=== PATIENT | female | born 1935 | race Caucasian/White ===

== ENCOUNTER 2020-10-26 20:43 | Inpatient (IN) | payer OTHER ==
[~2020-10-26] VITALS: Ht 162.6 cm; Wt 69.5 kg
[2020-10-26] MEDS ORDERED: METOPROLOL SUCC50 MG (22:21)
[2020-10-26 22:29] VITALS: BP 143/68
[2020-10-26 23:28] LABS: ABSOLUTE NEUTROPHILS 6.1 thou/uL (1.4-8.2); BASOPHILS 0.2 % (0.0-2.0); HEMATOCRIT 44.7 % (37.0-47.0); HEMOGLOBIN 13.9 gm/dL (12.0-15.0); LYMPHOCYTES 13.1 % (24.0-44.0); MCH 30.6 pg (26.0-34.0); MCHC 31.1 g/dL (28.0-37.0); MCV 98.4 fL (80.0-100.0); MONOCYTES 7.3 % (1.0-8.0); PLATELET COUNT 361 thou/uL (150-400); POLYS 79.4 % (36.0-66.0); RBC 4.54 mil/uL (4.20-5.00); RDW 16.2 % (10.5-14.5); WBC 7.7 thou/uL (4.0-11.0)
[2020-10-27 00:08] LABS: CALCIUM 8.6 mg/dL (8.5-10.1); CREATININE 1.6 mg/dL (0.6-1.0); MAGNESIUM 1.7 mg/dL (1.8-2.4); POTASSIUM 4.3 mmol/L (3.5-5.1)
[2020-10-27 00:14] LABS: TROPONIN-I 1.19 ng/mL (<0.06)
[2020-10-27 04:01] LABS: HEMATOCRIT 43.8 % (37.0-47.0); HEMOGLOBIN 13.8 gm/dL (12.0-15.0); MCH 31.2 pg (26.0-34.0); MCHC 31.6 g/dL (28.0-37.0); MCV 98.8 fL (80.0-100.0); RBC 4.43 mil/uL (4.20-5.00); RDW 16.2 % (10.5-14.5)
[2020-10-27 04:17] LABS: CHOLESTEROL 153 mg/dL (<200); HDL CHOLESTEROL 64 mg/dL (>40); LDL CHOLESTEROL 62 mg/dL (<100); TC:HDL 2.4 Ratio (Not establshd); TRIGLYCERIDE 138 mg/dL (<150); VLDL 28 mg/dL (<40)
[2020-10-27 04:20] LABS: SERUM ASSESSMENT Clear
[2020-10-27 04:22] LABS: CALCIUM 8.8 mg/dL (8.5-10.1); CREATININE 1.6 mg/dL (0.6-1.0); MAGNESIUM 2.5 mg/dL (1.8-2.4); POTASSIUM 4.5 mmol/L (3.5-5.1)
[2020-10-27 04:24] LABS: TROPONIN-I 1.04 ng/mL (<0.06)
[2020-10-27 05:19] VITALS: BP 146/53
[2020-10-27 08:16] VITALS: BP 154/65
[2020-10-27 11:50] VITALS: BP 146/85
[2020-10-27] MEDS ORDERED: LEXAPRO 10 MG T10 M1 PO (12:53)
[2020-10-27] MEDS ORDERED: ELIQUIS5 MG PO (12:53)
[2020-10-27] MEDS ORDERED: FISH OIL 1,0001 EAC9 PO (12:54)
[2020-10-27] MEDS ORDERED: FEOSOL325 M1 PO (12:54)
[2020-10-27] MEDS ORDERED: ZETIA10 MG PO (12:54)
[2020-10-27] MEDS ORDERED: SYNTHROID75 MC1 PO (12:55)
[2020-10-27] MEDS ORDERED: LASIX 40 MG TAB40 MG PO (12:55)
[2020-10-27] MEDS ORDERED: GLUMETZA500 PO (12:56)
[2020-10-27] MEDS ORDERED: MELATONIN5 MG SUBLING (12:56)
[2020-10-27] MEDS ORDERED: SUPER THERAVIT1 EACH PO (12:57)
[2020-10-27] MEDS ORDERED: MILK OF MA2400 MG/11 PO (12:57)
[2020-10-27] MEDS ORDERED: MYLANTA MAXIMU355 ML PO (12:58)
[2020-10-27] MEDS ORDERED: NITROSTAT0.4 M1 SUBLING (12:59)
[2020-10-27] MEDS ORDERED: ZOCOR 20 MG TAB20 M1 PO (13:00)
[2020-10-27] MEDS ORDERED: TIZANIDINE HCL4 M1 PO (13:01)
[2020-10-27] MEDS ORDERED: TOPROL XL25 MG PO (13:01)
[2020-10-27] MEDS ORDERED: TRAMADOL 50 MG50 MG PO (13:02)
[2020-10-27] MEDS ORDERED: TYLENOL325 MG PO (13:02)
[2020-10-27 15:39] VITALS: BP 154/85
[2020-10-27 20:26] VITALS: BP 147/89
[2020-10-28 02:05] LABS: GLYCOHEMOGLOBIN (HGB A1C) 7.1 % (4.8-5.6)
[2020-10-28 04:12] VITALS: BP 153/77
[2020-10-28 04:40] LABS: HEMATOCRIT 42.7 % (37.0-47.0); HEMOGLOBIN 13.7 gm/dL (12.0-15.0); MCH 31.6 pg (26.0-34.0); MCHC 32.1 g/dL (28.0-37.0); MCV 98.3 fL (80.0-100.0); RBC 4.34 mil/uL (4.20-5.00); RDW 16.2 % (10.5-14.5); WBC 8.1 thou/uL (4.0-11.0)
[2020-10-28 05:12] LABS: CALCIUM 8.7 mg/dL (8.5-10.1); CREATININE 1.4 mg/dL (0.6-1.0); POTASSIUM 4.4 mmol/L (3.5-5.1); TROPONIN-I 0.49 ng/mL (<0.06)
[2020-10-28 08:21] VITALS: BP 153/88
--- NOTE | 2020-10-28 08:21 | HC ---
[facility] [place] [address] CONSULTATION Name: LATASHA MORE Room #: 217-P ADM IN M.R.#: [id number] Admission: 10/26/20 Attend Phys: Gris Mena Discharge: Date of : 31 Report #: [id number] THIS REPORT FOR: cc: FAM - Family physician unknown FAM - Family physician unknown Elvis Liz MD ~ DOC #: [id number] Elvis Liz MD DATE OF SERVICE: 10/27/2020 INFECTIOUS DISEASE CONSULTATION ATTENDING PHYSICIAN: Dr. Mena REASON FOR EVALUATION: Right lower extremity inflammatory eruption, likely multifactorial including skin and soft tissue infection with cellulitis. HISTORY OF PRESENT ILLNESS: Chart reviewed, patient examined. This is an 85-year-old with fairly extensive medical history, who was admitted from [facility] ____ [facility], had an apparent recent syncopal episode and again this is based on the chart. She is unable to give too much details due to some somnolence, apparently did experience nausea with emesis and some diarrhea on the day of admission with an elevated troponin found. As per the initial evaluation, was thought to have an inflammatory eruption involving the distal right lower extremity. It is not clear that she had fevers, chills, it is difficult to ascertain. Apparently, she has had some anorexia with poor p.o. intake due to concern about a cellulitic process. She was empirically started on vancomycin. She is currently undergoing ultrasound examination of her abdomen. ALLERGIES: LISTED TO PENICILLINS. CURRENT MEDICATIONS: Include insulin lispro, prochlorperazine, vancomycin, p.r.n. analgesics, antiemetics, nitroglycerin as needed. PAST MEDICAL HISTORY: Includes hypertension, hyperlipidemia, diabetes mellitus, hypothyroidism, osteoarthritis, syncopal episode with previous falls, cardiomyopathy, congestive heart failure, chronic hypoxic respiratory failure requiring 2 liters of nasal cannula ____, atrial fibrillation on long-term anticoagulation, reflux, coronary artery disease with previous stenting. SOCIAL HISTORY: Per record, no ethanol, no illicit drug use. No tobacco. She is a resident of a nursing facility. FAMILY HISTORY: Noncontributory. REVIEW OF SYSTEMS: Not reliably obtained. [facility] [address] [place] [address] CONSULTATION Name: LATASHA MORE Room #: 217-P [facility] IN [facility].#: [id number] Admission: 10/26/20 Attend Phys: Gris Mena Discharge: Date of : 31 Report #: [id number] PHYSICAL EXAMINATION: GENERAL: She appears chronically ill and undernourished. She is quite lethargic and somnolent, does arouse, barely opens her eyes, mild distress. She appears chronically ill and undernourished although she is obese. VITAL SIGNS: Temperature 97.6, pulse 112, respirations 16, blood pressure 146/53. SKIN: Warm and dry.. HEENT: Normocephalic. Nasal cannula in place. NECK: Supple. LUNGS: Few scattered coarse crackles at the bases. HEART: Tachycardic, irregular. I do not appreciate a murmur. ABDOMEN: Somewhat distended, generally soft, I do not appreciate any tenderness. There are no peritoneal signs. EXTREMITIES: Distal lower extremities on the right has dermopathy, does appears to be venous stasis insufficiency with dermatitis, it is actually somewhat cool to touch, not exquisitely tender. There are no open ulcers. No bullous lesions. There is some moderate degree of surface inflammation noted. GENITOURINARY AND RECTAL: Deferred. LABORATORY DATA: TSH elevated at 4.153. Electrolytes: Sodium 140, potassium 4.5, chloride 102, bicarbonate 24, anion gap of 14, BUN and creatinine 19 and 1.6. Estimated GFR of 30. CBC: White count of 8.0, H and H 13.8 and 43.8, platelets of 357. ASSESSMENT AND PLAN: Bilateral lower extremity venous stasis insufficiency, does have an inflammatory eruption noted on the right, could be cellulitic process with skin and soft tissue infection. Secondly, has altered mental status, I suspect acute on chronic, may be multifactorial as well, does have a history of diabetes mellitus with generalized vasculopathy. We will check arterial Doppler to exclude issues with peripheral circulation. She remains quite tenuous at this point at risk for additional complications. Continue to monitor expectantly. Supportive care. MD NIMO Martinez/DEWEY/TJ <ELECTRONICALLY SIGNED> By: Elvis Liz MD 10/28/20 0821 0545 0900 Elvis Liz MD /nt
[2020-10-28 10:59] LABS: INR 1.05; PROTIME 11.4 Seconds (10.5-12.1)
[2020-10-28 11:53] VITALS: BP 119/60
--- NOTE | 2020-10-28 12:07 | EKG ---
[address] [place] [address] ELECTROCARDIOGRAM REPORT Name: LATASHA MORE Room #: 217- ADM IN M.R.#: [id number] Admission: 10/26/20 Attend Phys: Gris Mena Discharge: Date of : 31 Report #: [id number] [facility] Test Date: 2020-10-27 Test Time: 08:21:52 Pat Name: LATASHA MORE Department: Room: 217 Gender: F Cant Hooker: YAMILEX : 1935 Requested By: Jil Reis Order Number: [id number] MD: Reynaldo Todd Measurements Intervals Brimley Rate: 85 P: 48 CO: 228 QRS: 181 QRSD: 155 T: 209 QT: 512 QTc: 609 Interpretive Statements Sinus rhythm Ventricular trigeminy Prolonged CO interval Left atrial enlargement LBBB Compared to ECG 02/22/2002 07:12:05 Electronically Signed On 10-28-2020 12:06:52 CDT by Reynaldo Todd [email or web address] <ELECTRONICALLY SIGNED> By: Reynaldo Todd MD 10/28/20 1206 0 0 Reynaldo Todd MD /BECCA
[2020-10-28 15:52] VITALS: BP 151/81
[2020-10-28 19:50] VITALS: BP 156/92
[2020-10-29] VITALS (14 sets, daily range): BP systolic 137–170; BP diastolic 64–98
[2020-10-29 01:49] LABS: HEMATOCRIT 43.4 % (37.0-47.0); HEMOGLOBIN 13.8 gm/dL (12.0-15.0); MCH 31.2 pg (26.0-34.0); MCHC 31.8 g/dL (28.0-37.0); MCV 98.4 fL (80.0-100.0); RBC 4.41 mil/uL (4.20-5.00); WBC 8.2 thou/uL (4.0-11.0)
[2020-10-29 02:04] LABS: CREATININE 1.4 mg/dL (0.6-1.0); POTASSIUM 4.5 mmol/L (3.5-5.1)
--- NOTE | 2020-10-29 13:40 | 2DMMODE ---
[facility] [place] [address] 2 D/M-MODE ECHOCARDIOGRAM Name: LATASHA MORE Room #: 217-P ADM IN M.R.#: [id number] Admission: 10/26/20 Attend Phys: Tianna Dixon MD Discharge: Date of : 31 Report #: [id number] THIS REPORT FOR: cc: FAM - Family physician unknown FAM - Family physician unknown Shay Kelly MD [facility] ~ APPROVED REPORT Study performed: 10/29/2020 11:33:41 EXAM: Comprehensive 2D, Doppler, and color-flow Echocardiogram Patient Location: In-Patient Room #: 218 Status: routine BSA: 1.75 HR: 89 bpm Rhythm: NSR Other Information Study Quality: Good Risk Factors: Cardiac Risk Factors: HTN, DM Indications Aortic Valve Disease Congestive Heart Failure Syncope Chest Pain 2D Dimensions IVSd: 10.60 (7-11mm) LVOT Diam: 17.98 (18-24mm) LVDd: 43.16 mm PWd: 11.38 (7-11mm) LVDs: 38.71 (25-40mm) Left Atrium: 41.35 (27-40mm) Aortic Root: 28.03 mm LV Single Plane 4CH: 34.13 % LV Single Plane 2CH: 32.56 % Biplane EF: 33.8 % Volumes Left Atrial Volume (Systole) [facility] [place] [address] 2 D/M-MODE ECHOCARDIOGRAM Name: LATASHA MORE Jim Room #: 217-P ADM IN M.R.#: [id number] Admission: 10/26/20 Attend Phys: Tianna Dixon MD Discharge: Date of : 31 Report #: [id number] Single Plane 4CH: 121.53 mL Single Plane 2CH: 97.26 mL Biplane LA Volume: 120.00 mL LA ESV Index: 68.00 mL/m2 Aortic Valve AoV Peak Alex.: 1.90 m/s AO Peak Gr.: 14.44 mmHg LVOT Max P.66 mmHg LVOT Max V: 0.96 m/s REY Vmax: 1.28 cm2 Mitral Valve MV PHT: 76.71 ms MVA (PHT): 2.87 cm2 Pulmonary Valve PV Peak Alex.: 0.85 m/s PV Peak Gr.: 2.89 mmHg WA End Vmax: 1.38 m/s Tricuspid Valve TR Peak Alex.: 4.02 m/s RAP Estimate: 10.00 mmHg TR Peak Gr.: 64.53 mmHg RVSP: 75.00 mmHg Left Ventricle The left ventricle is normal size. There is normal LV segmental wall motion. Mild concentric left ventricular hypertrophy. Left ventricular systolic function is moderate to severely decreased. LVEF is 30-35%. This study is not technically sufficient to allow evaluation of the LV diastolic function. Right Ventricle The right ventricle is normal size. The right ventricular systolic function is normal. Atria Left atrium is severely dilated. Right atrium is dilated. Aortic Valve Aortic valve leaflets are moderately thickened. Mild aortic regurgitation. There is no aortic valvular stenosis. Mitral Valve Mitral valve leaflets are moderately thickened. Moderate to severe mitral regurgitation No evidence of mitral valve stenosis. Tricuspid Valve The tricuspid valve is normal in structure. Moderate to severe tricuspid regurgitation. PAP 75 mmHg Severe pulmonary [facility] [address] [place] [address] 2 D/M-MODE ECHOCARDIOGRAM Name: LATASHA MORE Jim Room #: 217-P [facility].#: [id number] Admission: 10/26/20 Attend Phys: Tianna Dixon MD Discharge: Date of : 31 Report #: [id number] hypertension. Pulmonic Valve The pulmonary valve is normal in structure. There is no pulmonic valvular regurgitation. Great Vessels The aortic root is normal in size. IVC is dilated and collapses <50% with inspiration. Pericardium There is no pericardial effusion. Small right pleural effusion. <Conclusion> Normal left ventricular size with mild concentric hypertrophy Global hypokinesis more prominent in the mid anterior apex and distal inferior wall Ejection fraction 30-35% Abnormal right ventricle size/mildly hypokinetic Left atrium severely dilated Right atrium moderately dilated Color-flow Doppler study was performed of the aortic/mitral/tricuspid/pulmonary valve Aortic valve moderately calcified with mild stenosis. Moderate mitral annular calcification Moderate to severe mitral valve insufficiency Moderate to severe tricuspid valve insufficiency Severe pulmonary hypertension PA pressure systolic estimated 75 mmHg IVC moderately dilated, minimally responsive to respiration No pericardial effusion Normal aortic root size <ELECTRONICALLY SIGNED> By: Shay Kelly MD, FACC 10/29/201339 39 39 Shay Kelly MD, FACC /INF
--- NOTE | 2020-10-29 16:10 | CATHLAB ---
[facility] [place] [address] [place] [address] INVASIVE PROCEDURE REPORT Name: LATASHA MORE Room #: 217-P ADM IN M.R.#: [id number] Admission: 10/26/20 Attend Phys: Tianna Dixon MD Discharge: Date of : 31 Report #: [id number] THIS REPORT FOR: cc: FAM - Family physician unknown FAM - Family physician unknown Rodrigo Hillman MD [facility] ~ APPROVED REPORT Study performed: 10/29/2020 09:18:46 Patient Details Patient Status: In-Patient Room #: The patient is a 85 year-old female Event Personnel Rodrigo Hillman Binitrotoluene Operator, Stacey Cabrera RTR Monitor, Leona Olguin RTR, FINANCIAL AID OFFICER Scrub, Liana Pantoja RN rail grinder Performed Left Heart Cath w/or w/o Coronaries [id number] [facility] Hemostasis with Manual pressure Art Access - L femoral artery* Procedure Narrative The was infiltrated with 1% Lidocaine subcutaneous anesthesia. A SHEATH BRITE-TIP 6F X 11CM ([id number]) sheath was inserted into the LFA^. Coronary angiography was performed using coronary diagnostic catheters. The right coronary system was accessed and visualized with a 5f JR4 catheter. The left coronary system was accessed and visualized with a 5f JL4 catheter. The left ventricle was accessed and visualized with a 5f PIGTAIL catheter. Left ventriculogram was performed in 30 degree projection. Hemostasis was obtained with manual pressure following sheath removal without any complications. The patient tolerated the procedure well and there were no complications associated with the procedure. There was no hematoma. Intraoperative Conscious Sedation Sedation start time: 8:19 Case end Time: 10:30 Fentanyl 25 mcg Versed 0.5 mg Sedation, sedation times, and contrast are a combined total of a runoff procedure and a heart cath. [facility] [address] [address] INVASIVE PROCEDURE REPORT Name: LATASHA MORE Jim Room #: 217-[facility]#: [id number] Admission: 10/26/20 Attend Phys: Tianna Dixon MD Discharge: Date of : 31 Report #: [id number] Fluoro Time: 14.45 minutes Dose: DAP 09970.90 cGycm2 246 mGy Contrast Type and Amount: Visipaque 100 ml Hemodynamics The aortic pressure is 139/70 mmHg with a mean of 106 mmHg. The left ventricular pressure is 165/20 mmHg with a mean of mmHg. The left ventricular end diastolic pressure is 25 mmHg. Conclusion #1. Normal left ventricular size inferior apical hypokinesis EF 45% range #2 left main short free of disease giving rise to LAD and circumflex. #3 LAD is moderately calcified extends to the apex with only mild irregularity. #4 circumflex OM nondominant is a totally occluded vessel proximally some faint left to left collateralization. Nondominant #5 large dominant right coronary artery calcified looks like a previously placed stent mild restenosis in the mid vessel eccentric lesion of 70% PDA ÓSCAR well preserved Recommendations and plan: Continue aggressive risk factor modification no indication for current coronary intervention. <ELECTRONICALLY SIGNED> By: Rodrigo Hillman MD, FACC 10/29/20 1609 1609 1609 Rodrigo Hillman MD, FACC /INF
[2020-10-30 00:42] VITALS: BP 131/69
[2020-10-30 03:54] VITALS: BP 157/84
[2020-10-30 07:05] VITALS: BP 156/89
[2020-10-30 10:14] LABS: HEMATOCRIT 43.7 % (37.0-47.0); HEMOGLOBIN 13.5 gm/dL (12.0-15.0); MCH 30.6 pg (26.0-34.0); MCHC 30.9 g/dL (28.0-37.0); MCV 99.1 fL (80.0-100.0); RBC 4.41 mil/uL (4.20-5.00); RDW 16.4 % (10.5-14.5); WBC 7.7 thou/uL (4.0-11.0)
[2020-10-30 10:22] LABS: CALCIUM 8.8 mg/dL (8.5-10.1); CREATININE 1.2 mg/dL (0.6-1.0); POTASSIUM 4.2 mmol/L (3.5-5.1)
[2020-10-30 12:15] VITALS: BP 132/79
[2020-10-30] MEDS ORDERED: MINOCYCLINE 5050 M1 PO (14:32)
[2020-10-30] MEDS ORDERED: NORVASC5 MG PO (14:35)
[2020-10-30] MEDS ORDERED: COZAAR 25 MG TA25 M1 PO (14:35)
[2020-10-30] MEDS ORDERED: ASPIRIN EC325 M1 PO (14:36)
[2020-10-30 16:44] VITALS: BP 146/78
== END 2020-10-30 17:36 | DRG 280 ==
LOC: 2N 20:43
PROVIDERS: Hospitalist; Internal Medicine Cardiovascular Disease; Nurse Practitioner; Nurse Practitioner Adult Health; Nurse Practitioner Family; ADMIT Internal Medicine; ATTEND Internal Medicine
PROC: B4181ZZ Fluoroscopy of Bilateral Renal Arteries using Low Osmolar Contrast (ICD-10-PCS; principal; 2020-10-29)
PROC: 4A023N7 Measurement of Cardiac Sampling and Pressure, Left Heart, Percutaneous Approach (ICD-10-PCS; principal; 2020-10-29)
PROC: B211YZZ Fluoroscopy of Multiple Coronary Arteries using Other Contrast (ICD-10-PCS; principal; 2020-10-29)
PROC: B215YZZ Fluoroscopy of Left Heart using Other Contrast (ICD-10-PCS; principal; 2020-10-29)
PROC: B41D1ZZ Fluoroscopy of Aorta and Bilateral Lower Extremity Arteries using Low Osmolar Contrast (ICD-10-PCS; principal; 2020-10-29)
DX: I21.4 Non-ST elevation (NSTEMI) myocardial infarction (principal); N17.0 Acute kidney failure with tubular necrosis; G93.41 Metabolic encephalopathy; L03.115 Cellulitis of right lower limb; J96.11 Chronic respiratory failure with hypoxia; I42.9 Cardiomyopathy, unspecified; E46 Unspecified protein-calorie malnutrition; E11.51 Type 2 diabetes mellitus with diabetic peripheral angiopathy without gangrene; I48.91 Unspecified atrial fibrillation; E78.5 Hyperlipidemia, unspecified; E03.9 Hypothyroidism, unspecified; M19.90 Unspecified osteoarthritis, unspecified site; I50.9 Heart failure, unspecified; K21.9 Gastro-esophageal reflux disease without esophagitis; I25.10 Atherosclerotic heart disease of native coronary artery without angina pectoris; I87.8 Other specified disorders of veins; Z96.652 Presence of left artificial knee joint; I44.0 Atrioventricular block, first degree; I44.7 Left bundle-branch block, unspecified; K44.9 Diaphragmatic hernia without obstruction or gangrene; I11.0 Hypertensive heart disease with heart failure; I08.3 Combined rheumatic disorders of mitral, aortic and tricuspid valves; K80.20 Calculus of gallbladder without cholecystitis without obstruction; K57.30 Diverticulosis of large intestine without perforation or abscess without bleeding; Z88.0 Allergy status to penicillin; Z95.5 Presence of coronary angioplasty implant and graft; Z90.710 Acquired absence of both cervix and uterus; Z90.49 Acquired absence of other specified parts of digestive tract; Z82.49 Family history of ischemic heart disease and other diseases of the circulatory system; Z83.3 Family history of diabetes mellitus; Z79.01 Long term (current) use of anticoagulants; Z79.82 Long term (current) use of aspirin; Z79.899 Other long term (current) drug therapy; Z68.26 Body mass index [BMI] 26.0-26.9, adult
CPT/HCPCS: 10081